=== PATIENT | male | born 1985 | race Caucasian/White ===

== ENCOUNTER 2016-10-27 13:26 | Emergency (ER) | payer BC ==
[2016-10-27 13:43] VITALS: BP 106/76; PULSE 92; RESP 20; TEMP 99.4
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
== END 2016-10-27 14:59 | disposition home or self-care (01) ==
LOC: EC 13:26
DX: S00.83XA Contusion of other part of head, initial encounter (principal); S00.512A Abrasion of oral cavity, initial encounter; Y04.2XXA Assault by strike against or bumped into by another person, initial encounter; F17.200 Nicotine dependence, unspecified, uncomplicated; Z88.8 Allergy status to other drugs, medicaments and biological substances
CPT/HCPCS: 70486; 99284

== ENCOUNTER 2017-01-08 10:38 | Emergency (ER) | payer BC ==
[2017-01-08 10:46] VITALS: BP 117/75; PULSE 81; RESP 20; TEMP 98
--- NOTE | 2017-01-08 10:55 | ED ---
General Adult HPI - General Chief complaint: Recheck/Abnormal Lab/Rx Stated complaint: vomiting Time Seen by Provider: 01/08/17 10:50 Source: patient, RN notes reviewed Mode of arrival: ambulatory Limitations: no limitations - History of Present Illness Initial comments: 31-year-old male presents emergency Department requesting a work no. Patient states that his family all had stomach bug last week until this week states that he has contracted this and was vomiting all last night and having some diarrhea. He states he has open at home in which she's taken it has not been keeping down fluids. Patient states he missed work and needs a work no. Patient does not want a medical treatment. Denies abdominal pain, fever, chills , headache or dizziness. Patient offers no other complaints. - Related Data Home Medications Medication Instructions Recorded Confirmed No Known Home Medications [No 02/27/16 10/27/16 Known Home Medications] Allergies Allergy/AdvReac Type Severity Reaction Status Date / Time cyclobenzaprine HCl Allergy Unknown Verified 10/27/16 13:43 [From Flexeril] ibuprofen [From Motrin] Allergy Nausea & Verified 10/27/16 13:43 Vomiting Review of Systems ROS Statement: Those systems with pertinent positive or pertinent negative responses have been documented in the HPI. ROS Other: All systems not noted in ROS Statement are negative. Past Medical History Past Medical History: No Reported History Additional Past Medical History / Comment(s): BAD TEETH History of Any Multi-Drug Resistant Organisms: None Reported Past Surgical History: No Surgical Hx Reported Past Psychological History: Anxiety Smoking Status: Current every day smoker Past Alcohol Use History: None Reported Past Drug Use History: None Reported General Exam Limitations: no limitations General appearance: alert, in no apparent distress Respiratory exam: Present: normal lung sounds bilaterally. Absent: respiratory distress, wheezes, rales, rhonchi, stridor Cardiovascular Exam: Present: regular rate, normal rhythm, normal heart sounds. Absent: systolic murmur, diastolic murmur, rubs, gallop, clicks GI/Abdominal exam: Present: soft, normal bowel sounds. Absent: distended, tenderness, guarding, rebound, rigid Course Vital Signs 01/08/17 10:44 Temperature 98 F Pulse Rate 81 Respiratory 20 Rate Blood Pressure 117/75 O2 Sat by Pulse 100 Oximetry Medical Decision Making - Medical Decision Making 31-year-old male presented for nausea vomiting. Patient had multiple contacts and also some symptoms. His symptoms are resolving and requested a work no. Return parameters were discussed. Patient offered medical treatment though he declined. Disposition Clinical Impression: Gastroenteritis Disposition: HOME SELF-CARE Condition: Stable Instructions: Acute Nausea and Vomiting (ED) Additional Instructions: Please return to the Emergency Department if symptoms worsen or any other concerns. Time of Disposition: 10:55
== END 2017-01-08 11:13 | disposition home or self-care (01) ==
LOC: EC 10:38
DX: K52.9 Noninfective gastroenteritis and colitis, unspecified (principal); F17.200 Nicotine dependence, unspecified, uncomplicated; Z88.6 Allergy status to analgesic agent; Z88.8 Allergy status to other drugs, medicaments and biological substances
CPT/HCPCS: 99283

== ENCOUNTER 2017-04-04 17:16 | Emergency (ER) | payer BC ==
[2017-04-04 17:43] VITALS: BP 116/74; PULSE 100; RESP 18; TEMP 99.2
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
== END 2017-04-04 18:41 | disposition home or self-care (01) ==
LOC: EC 17:16
DX: R11.2 Nausea with vomiting, unspecified (principal); F17.200 Nicotine dependence, unspecified, uncomplicated; Z88.6 Allergy status to analgesic agent; Z88.8 Allergy status to other drugs, medicaments and biological substances
CPT/HCPCS: 99284

== ENCOUNTER 2017-05-06 17:46 | Emergency (ER) | payer BC ==
[2017-05-06 18:05] VITALS: BP 112/76; PULSE 65; RESP 18; TEMP 98.4
[2017-05-06] MEDS ORDERED: DIAZEPAM 5 MG/ML 2 ML SYRINGE IM STA (18:16)
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
== END 2017-05-06 18:30 | disposition home or self-care (01) ==
LOC: EC 17:46
DX: S76.112D Strain of left quadriceps muscle, fascia and tendon, subsequent encounter (principal); F17.200 Nicotine dependence, unspecified, uncomplicated; Z88.1 Allergy status to other antibiotic agents; Z88.6 Allergy status to analgesic agent; Z88.8 Allergy status to other drugs, medicaments and biological substances; X58.XXXD Exposure to other specified factors, subsequent encounter
CPT/HCPCS: 99283; 96372; J3360

== ENCOUNTER 2017-05-09 20:03 | Emergency (ER) | payer BC ==
[2017-05-09 20:28] VITALS: BP 112/79; PULSE 106; RESP 18; TEMP 97.7
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
== END 2017-05-09 21:17 | disposition home or self-care (01) ==
LOC: EC 20:03
DX: S76.112A Strain of left quadriceps muscle, fascia and tendon, initial encounter (principal); F17.200 Nicotine dependence, unspecified, uncomplicated; Z88.1 Allergy status to other antibiotic agents; Z88.8 Allergy status to other drugs, medicaments and biological substances; Z88.6 Allergy status to analgesic agent; X58.XXXA Exposure to other specified factors, initial encounter
CPT/HCPCS: 99283

== ENCOUNTER 2017-10-07 19:56 | Emergency (ER) | payer BC ==
[2017-10-07 20:38] VITALS: BP 132/84; PULSE 98; RESP 18; TEMP 97.9
--- NOTE | 2017-10-07 21:14 | ED ---
Lower Extremity Injury HPI - General Chief Complaint: Extremity Injury, Lower Stated Complaint: leg/knee pain Time Seen by Provider: 10/07/17 20:53 Source: patient, RN notes reviewed, old records reviewed Mode of arrival: ambulatory Limitations: no limitations - History of Present Illness Initial Comments: This is a 32-year-old male presents for increase right leg pain. Patient states that he had the pain yesterday and then he went to work today in the afternoon it was become increasingly worse. Patient stated above the knee, denies That was in the joint. Patient states that he had to leave work. Patient's reports is here for a work note. He wants. He denies any trauma to the leg, denies numbness or tingling. - Related Data Home Medications Medication Instructions Recorded Confirmed No Known Home Medications [No 08/26/17 08/26/17 Known Home Medications] Allergies Allergy/AdvReac Type Severity Reaction Status Date / Time clindamycin AdvReac Nausea & Verified 08/26/17 07:19 Vomiting cyclobenzaprine HCl AdvReac SEZIZURE Verified 08/26/17 07:19 [From Flexeril] ibuprofen [From Motrin] AdvReac Nausea & Verified 08/26/17 07:19 Vomiting Review of Systems ROS Statement: Those systems with pertinent positive or pertinent negative responses have been documented in the HPI. ROS Other: All systems not noted in ROS Statement are negative. Past Medical History Past Medical History: No Reported History Additional Past Medical History / Comment(s): BAD TEETH, LEFT LEG PROBLEMS History of Any Multi-Drug Resistant Organisms: None Reported Past Surgical History: No Surgical Hx Reported Additional Past Surgical History / Comment(s): seizures Past Psychological History: Anxiety Smoking Status: Current every day smoker Past Alcohol Use History: Occasional Past Drug Use History: Marijuana General Exam - General Exam Comments Initial Comments: This is a 32 year old male, no distress. Limitations: no limitations General appearance: alert, in no apparent distress Head exam: Present: atraumatic, normocephalic, normal inspection Eye exam: Present: normal appearance, PERRL, EOMI. Absent: scleral icterus, conjunctival injection, periorbital swelling ENT exam: Present: normal exam, mucous membranes moist Neck exam: Present: normal inspection. Absent: tenderness, meningismus, lymphadenopathy Respiratory exam: Present: normal lung sounds bilaterally. Absent: respiratory distress, wheezes, rales, rhonchi, stridor Cardiovascular Exam: Present: regular rate, normal rhythm, normal heart sounds. Absent: systolic murmur, diastolic murmur, rubs, gallop, clicks GI/Abdominal exam: Present: soft, normal bowel sounds. Absent: distended, tenderness, guarding, rebound, rigid Right Upper Leg exam: Present: normal inspection, full ROM Knee exam: Present: normal inspection, full ROM Lower Leg exam: Present: normal inspection, full ROM Ankle exam: Present: normal inspection, full ROM Neurovascular tendon exam: Present: no vascular compromise Gait: observed and normal Back exam: Present: normal inspection Neurological exam: Present: alert, oriented X3, CN II-XII intact Psychiatric exam: Present: normal affect, normal mood Skin exam: Present: warm, dry, intact, normal color. Absent: rash Course Vital Signs 10/07/17 20:34 Temperature 97.9 F Pulse Rate 98 Respiratory 18 Rate Blood Pressure 132/84 O2 Sat by Pulse 98 Oximetry Medical Decision Making - Medical Decision Making This is a 32-year-old male presents for increase right leg pain. Patient states that he had the pain yesterday and then he went to work today in the afternoon it was become increasingly worse. Patient stated above the knee, denies That was in the joint. Patient has full range of motion of the leg, Full strength and full vascularity and neurologically intact. Patient will follow up with PCP and return parameters discussed. Discussed no trauma, therefore other testing warranted. Given a note for work today. Disposition Clinical Impression: Right leg pain Disposition: HOME SELF-CARE Condition: Good Instructions: Leg Pain (ED) Additional Instructions: Motrin Tylenol for pain rest ice and elevated. Return to the emergency department if any alarming signs or symptoms occur. Referrals: Omega Puentes MD [Primary Care Provider] - 1-2 days Jose Gonzales DO [Doctor of Osteopathic Medicine] - 1-2 days Time of Disposition: 21:13
== END 2017-10-07 21:24 | disposition home or self-care (01) ==
LOC: EC 19:56
DX: M79.604 Pain in right leg (principal); F17.200 Nicotine dependence, unspecified, uncomplicated; Z88.1 Allergy status to other antibiotic agents; Z88.8 Allergy status to other drugs, medicaments and biological substances; Z88.6 Allergy status to analgesic agent
CPT/HCPCS: 99283

== ENCOUNTER 2018-02-19 18:25 | Emergency (ER) | payer BC ==
[2018-02-19 18:34] VITALS: BP 113/73; PULSE 95; RESP 16; TEMP 99
--- NOTE | 2018-02-19 18:56 | ED ---
Nausea/Vomiting/Diarrhea HPI - General Chief complaint: Nausea/Vomiting/Diarrhea Stated complaint: Stomach pain Time Seen by Provider: 02/19/18 18:39 Source: patient Mode of arrival: ambulatory Limitations: no limitations - History of Present Illness Initial comments: 32-year-old male patient presents to the emergency department today requesting a work note. 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 Patient states that he left work early due to not feeling well. States that he is feeling better now however he doesn't work note to return to work tomorrow. Patient denies any current nausea , denies vomiting, constipation, diarrhea, fever, or chills. Denies any abdominal pain. Patient denies any recent rash, shortness breath, chest pain, back pain, numbness, tingling, dizziness, weakness, hematuria, dysuria, urinary urgency, urinary frequency, headache, visual changes, or any other complaints. - Related Data Home Medications Medication Instructions Recorded Confirmed No Known Home Medications [No 08/26/17 08/26/17 Known Home Medications] Allergies Allergy/AdvReac Type Severity Reaction Status Date / Time clindamycin AdvReac Nausea & Verified 02/19/18 18:34 Vomiting cyclobenzaprine HCl AdvReac SEZIZURE Verified 02/19/18 18:34 [From Flexeril] ibuprofen [From Motrin] AdvReac Nausea & Verified 02/19/18 18:34 Vomiting Review of Systems ROS Statement: Those systems with pertinent positive or pertinent negative responses have been documented in the HPI. ROS Other: All systems not noted in ROS Statement are negative. Past Medical History Past Medical History: No Reported History Additional Past Medical History / Comment(s): BAD TEETH, LEFT LEG PROBLEMS History of Any Multi-Drug Resistant Organisms: None Reported Past Surgical History: No Surgical Hx Reported Additional Past Surgical History / Comment(s): seizures Past Psychological History: Anxiety Smoking Status: Current every day smoker Past Alcohol Use History: Occasional Past Drug Use History: Marijuana General Exam Limitations: no limitations General appearance: alert, in no apparent distress Eye exam: Present: normal appearance, PERRL, EOMI. Absent: scleral icterus, conjunctival injection, periorbital swelling ENT exam: Present: normal exam, mucous membranes moist Neck exam: Present: normal inspection. Absent: tenderness, meningismus, lymphadenopathy Respiratory exam: Present: normal lung sounds bilaterally. Absent: respiratory distress, wheezes, rales, rhonchi, stridor Cardiovascular Exam: Present: regular rate, normal rhythm, normal heart sounds. Absent: systolic murmur, diastolic murmur, rubs, gallop, clicks GI/Abdominal exam: Present: soft, normal bowel sounds. Absent: distended, tenderness, guarding, rebound, rigid Neurological exam: Present: alert, oriented X3, CN II-XII intact Psychiatric exam: Present: normal affect, normal mood Skin exam: Present: warm, dry, intact, normal color. Absent: rash Course Vital Signs 02/19/18 18:31 Temperature 99 F Pulse Rate 95 Respiratory 16 Rate Blood Pressure 113/73 O2 Sat by Pulse 95 Oximetry Medical Decision Making - Medical Decision Making 32-year-old male patient presented to the emergency department today requesting work note after he left work for feeling nauseated. Physical examination is unremarkable. Abdomen is soft and nontender. Patient denies any current symptoms. I did offer to perform blood work and provide medications for his symptoms, he refused stating that he only wanted a work note and to be discharged. Did discuss follow-up with his primary care physician. Return parameters discussed in detail. He verbalizes understanding and agreement with this plan. Disposition Clinical Impression: Nausea Disposition: HOME SELF-CARE Condition: Good Instructions: Acute Nausea and Vomiting (ED) Additional Instructions: Increase fluids. Follow-up through primary care physician for recheck in 1-2 days. Return here immediately for any new, worsening, or concerning symptoms. Is patient prescribed a controlled substance at d/c from ED?: No Referrals: Omega Puentes MD [Primary Care Provider] - 1-2 days Time of Disposition: 18:56
== END 2018-02-19 19:30 | disposition home or self-care (01) ==
LOC: EC 18:25
DX: R11.0 Nausea (principal); R20.8 Other disturbances of skin sensation; F17.200 Nicotine dependence, unspecified, uncomplicated; Z88.1 Allergy status to other antibiotic agents; Z88.6 Allergy status to analgesic agent; Z88.8 Allergy status to other drugs, medicaments and biological substances
CPT/HCPCS: 99283

== ENCOUNTER 2020-12-25 07:55 | Emergency (ER) | payer BC, OTHER ==
[2020-12-25 08:01] VITALS: RESP 18; TEMP 97.4
[2020-12-25] MEDS ORDERED: ACET/COD 300 MG/30 MG STARTER PACK 6 TAB BTL PO STA (08:13)
[2020-12-25] MEDS ORDERED: ONDANSETRON ODT 4 MG TAB PO STA (08:13)
[2020-12-25] MEDS ORDERED: AMOXIC-POT CLAV 875MG STARTER PACK 2 TAB BTL PO STA (08:13)
--- NOTE | 2020-12-25 08:14 | ED ---
ENT HPI - General Source: patient Mode of arrival: ambulatory Limitations: no limitations <Elise Rhoades - Last Filed: 12/25/20 08:15> <Adina Reich - Last Filed: 01/02/21 03:01> - General Chief complaint: Dental/Oral Stated complaint: dental pain Time Seen by Provider: 12/25/20 08:04 - History of Present Illness Initial comments: 35-year-old male presenting to the ER today for chief complaint of left-sided dental pain. Patient states he is a struggle with on-and-off dental pain for quite some time. He states the past 2 days as worse in the left lower aspect of his jaw. Patient denies any facial swelling stumbled the tongue swelling of the neck he denies any fevers chills general malaise. Patient states that he was gargling salt water rinses yesterday and mmouth wash in order to try to help. Patient states this morning he had an episode of vomiting and was not sure if it ws related to the dental infection, denies abdominal pain,, diarrhea, chest pain, dyspnea, cough. Patient states he struggled wtih anxiety especially when in the hospital, HR 134 on arrival in triage, but once resting in room and upon history taking his HR 94bpm. (Elise Rhoades) - Related Data Previous Rx's Medication Instructions Recorded Amoxicillin/Potassium Clav 1 tab PO Q12HR 7 Days #14 tab 12/25/20 [Augmentin 875-125 Tablet] Allergies Allergy/AdvReac Type Severity Reaction Status Date / Time clindamycin AdvReac Nausea & Verified 12/25/20 07:56 Vomiting cyclobenzaprine HCl AdvReac SEZIZURE Verified 12/25/20 07:56 [From Flexeril] ibuprofen [From Motrin] AdvReac Nausea & Verified 12/25/20 07:56 Vomiting Review of Systems ROS Other: All systems not noted in ROS Statement are negative. <Elise Rhoades - Last Filed: 12/25/20 08:15> ROS Other: All systems not noted in ROS Statement are negative. <Adina Reich - Last Filed: 01/02/21 03:01> ROS Statement: Those systems with pertinent positive or pertinent negative responses have been documented in the HPI. Past Medical History Past Medical History: No Reported History, GERD/Reflux, Hypertension, Seizure Disorder Additional Past Medical History / Comment(s): BAD TEETH, LEFT LEG PROBLEMS History of Any Multi-Drug Resistant Organisms: None Reported Past Surgical History: No Surgical Hx Reported Additional Past Surgical History / Comment(s): seizures Past Psychological History: Anxiety, Depression Smoking Status: Current every day smoker Past Alcohol Use History: None Reported Past Drug Use History: Marijuana <Elise Rhoades - Last Filed: 12/25/20 08:15> General Exam Limitations: no limitations <Elise Rhoades - Last Filed: 12/25/20 08:15> - General Exam Comments Initial Comments: General: The patient is awake and alert, in no distress, and does not appear acutely ill. Eye: Pupils are equal, round and reactive to light, extra-ocular movements are intact. No nystagmus. There is normal conjunctiva bilaterally. No signs of icterus. Ears, nose, mouth and throat: There are moist mucous membranes and no oral lesions. Numerous caries and broken teeth there is no obvious abscess adjacent to the broken teeth on gingiva but pain to percussion. no swelling below the tongue or of face/neck. no tripoding drooling, and pt is tolerating oral secretions. Neck: The neck is supple, there is no tenderness or JVD. Cardiovascular: There is a regular rate and rhythm. No murmur, rub or gallop is appreciated. Respiratory: Lungs are clear to auscultation, respirations are non-labored, breath sounds are equal. No wheezes, stridor, rales, or rhonchi. Gastrointestinal: Soft, non-distended, non-tender abdomen without masses or organomegaly noted. There is no rebound or guarding present. Musculoskeletal: Normal ROM, no tenderness. Strength 5/5. Sensation intact. Pulses equal bilaterally 2+. Neurological: A&O x 3. CN II-XII intact grossly, There are no obvious motor or sensory deficits. Coordination appears grossly intact. Speech is normal. Skin: Skin is warm and dry and no rashes or lesions are noted. Psychiatric: Cooperative, appropriate mood & affect, normal judgment. (Elise Rhoades) Course Vital Signs 12/25/20 12/25/20 12/25/20 07:56 08:14 08:37 Temperature 97.4 F L Pulse Rate 134 H 94 100 Respiratory 18 18 Rate Blood Pressure 95/63 98/67 O2 Sat by Pulse 99 96 97 Oximetry Medical Decision Making <Elise Rhoades - Last Filed: 12/25/20 08:15> <Adina Reich - Last Filed: 01/02/21 03:01> - Medical Decision Making Pt repeat HR WNL. Afebrile. he appears well nontoxic. no signs of ludwigs angina. there is no drainage abscess at this time. poor denition overall. pt will be treated with oral antibiotics and is to f/u with dentist in next 2-3 days. return for worsening symptoms pt agreeable to care plan and discharge, (Elise Rhoades) I was available for consultation in the emergency department. The history and physical exam were done by the midlevel provider. I was consulted for this patients care. I reviewed the case with the midlevel provider and based on their presentation of the patient, I agree with the assessment, medical decision making and plan of care as documented. Chart was dictated using [employer] dictation software. Attempts were made to correct any dictation errors however some typographical errors may persist. Patient was seen during a national state of emergency due to the Covid-19 pandemic. (Adina Reich) Disposition Is patient prescribed a controlled substance at d/c from ED?: No Time of Disposition: 08:14 <Elise Rhoades - Last Filed: 12/25/20 08:15> <Adina Reich - Last Filed: 01/02/21 03:01> Clinical Impression: Pain, dental Disposition: HOME SELF-CARE Condition: Good Instructions (If sedation given, give patient instructions): Dental Abscess (ED), Toothache (ED) Additional Instructions: Please use medication as discussed. Please follow-up with dentist in the next 2 days, return for fevers, facial swelling, lightheadedness, swelling of neck or below tongue. Please return to emergency room if the symptoms increase or worsen or for any other concerns. Prescriptions: Amoxicillin/Potassium Clav [Augmentin 875-125 Tablet] 1 tab PO Q12HR 7 Days #14 tab Referrals: Geronimo Carl MD [Primary Care Provider] - 1-2 days
[2020-12-25 08:39] VITALS: BP 98/67; PULSE 100
== END 2020-12-25 08:38 | disposition home or self-care (01) ==
LOC: EC 07:55
DX: K08.89 Other specified disorders of teeth and supporting structures (principal); K21.9 Gastro-esophageal reflux disease without esophagitis; I10 Essential (primary) hypertension; F41.9 Anxiety disorder, unspecified; F12.90 Cannabis use, unspecified, uncomplicated; F17.200 Nicotine dependence, unspecified, uncomplicated; F32.9 Major depressive disorder, single episode, unspecified
CPT/HCPCS: 99283

== ENCOUNTER 2021-03-19 20:20 | Emergency (ER) | payer OTHER ==
[2021-03-19] MEDS ORDERED: SODIUM CHLORIDE 0.9% 1,000 ML IV ONE (20:55)
[2021-03-19 21:56] LABS: Basophils # (A) 0.1 k/uL (0-0.2); Basophils % (A) 0 %; Eosinophils # (A) 0.3 k/uL (0-0.7); Eosinophils % (A) 1 %; HCT 44.4 % (39.0-53.0); HGB 15.2 gm/dL (13.0-17.5); Lymphocytes % (A) 5 %; MCH 31.6 pg (25.0-35.0); MCHC 34.2 g/dL (31.0-37.0); MCV 92.4 fL (80.0-100.0); Mean Platelet Volume 6.2; Monocytes # (A) 0.5 k/uL (0-1.0); Monocytes % (A) 2 %; Neutrophils # (A) 21.1 k/uL (1.3-7.7); Neutrophils % (A) 92 %; Platelet Count 371 k/uL (150-450); RDW 12.7 % (11.5-15.5)
[2021-03-19 22:07] LABS: INR 1.1 (<1.2); Partial Thromboplastin Time 24.1 sec (22.0-30.0); Prothrombin Time 11.5 sec (9.0-12.0)
--- NOTE | 2021-03-19 22:07 | XR ---
EXAMINATION TYPE: XR chest 2V DATE OF EXAM: 03/19/2021 COMPARISON: 12/11/2015 HISTORY: Chest pain TECHNIQUE: 2 views FINDINGS: There is some diffuse interstitial infiltrate in the left lung. This is mainly in the mid l edyta field. There is slight increased interstitial density also in the right lung. Heart and mediastin um are normal. There are no hilar masses. Costophrenic angles are clear. Bony thorax is intact. IMPRESSION: There is some interstitial pneumonia which is new compared to old exam. Normal heart. Pne umonia mainly on the left side.
--- NOTE | 2021-03-19 22:07 | ED ---
Chest Pain HPI - General Chief Complaint: Chest Pain Stated Complaint: Chest Pain Time Seen by Provider: 03/19/21 20:33 Source: patient, EMS, RN notes reviewed Mode of arrival: EMS Limitations: no limitations - History of Present Illness Initial Comments: 35-year-old male presents emergency from chief complaint of left-sided abdominal chest discomfort. Patient states that he home after he states he was boating all weekend he states he started feeling shaky, felt like he was very nauseated and vomiting. Patient states that he attempted getting some cousins have a few bouts of emesis denies any went to nausea currently states that he had some left-sided rib pain which is still there but better. Patient denies any shortness breath he states it hurts to twist amendment to get deep breath no prior cardiac disease. Patient denies any alcohol or drug use. He states she's been sore for over 3 years. - Related Data Previous Rx's Medication Instructions Recorded Amoxicillin/Potassium Clav 1 tab PO Q12HR 7 Days #14 tab 12/25/20 [Augmentin 875-125 Tablet] Azithromycin [Zithromax Z-pack (6 0 mg PO DIRECTED #1 pack 03/19/21 tabs)] Allergies Allergy/AdvReac Type Severity Reaction Status Date / Time clindamycin AdvReac Nausea & Verified 12/25/20 07:56 Vomiting cyclobenzaprine HCl AdvReac SEZIZURE Verified 12/25/20 07:56 [From Flexeril] ibuprofen [From Motrin] AdvReac Nausea & Verified 12/25/20 07:56 Vomiting Review of Systems ROS Statement: Those systems with pertinent positive or pertinent negative responses have been documented in the HPI. ROS Other: All systems not noted in ROS Statement are negative. Past Medical History Past Medical History: No Reported History, GERD/Reflux, Hypertension, Seizure Disorder Additional Past Medical History / Comment(s): BAD TEETH, LEFT LEG PROBLEMS History of Any Multi-Drug Resistant Organisms: None Reported Past Surgical History: No Surgical Hx Reported Additional Past Surgical History / Comment(s): seizures Past Psychological History: Anxiety, Depression Smoking Status: Current every day smoker Past Alcohol Use History: None Reported Past Drug Use History: Marijuana General Exam Limitations: no limitations General appearance: alert, in no apparent distress Head exam: Present: atraumatic, normocephalic, normal inspection Eye exam: Present: normal appearance, PERRL, EOMI. Absent: scleral icterus, conjunctival injection, periorbital swelling Neck exam: Present: normal inspection, full ROM. Absent: tenderness, meningismus, lymphadenopathy Respiratory exam: Present: normal lung sounds bilaterally. Absent: respiratory distress, wheezes, rales, rhonchi, stridor, chest wall tenderness Cardiovascular Exam: Present: regular rate, normal rhythm, normal heart sounds. Absent: systolic murmur, diastolic murmur, rubs, gallop, clicks GI/Abdominal exam: Present: soft, normal bowel sounds. Absent: distended, tenderness, guarding, rebound, rigid Course Vital Signs 03/19/21 03/19/21 03/19/21 20:37 21:53 22:26 Temperature 98.7 F 100 F H Pulse Rate 71 71 84 Respiratory 20 20 22 Rate Blood Pressure 106/88 106/74 96/70 O2 Sat by Pulse 100 95 95 Oximetry Chest Pain MDM - MDM 35-year-old presented for similar rib discomfort. Patient workup reveals evidence of pneumonia. Patient's did have low-grade temp. White count shows evidence of 22,000 white count. Patient is currently on Augmentin. Patient was given Rocephin is instructed for further evaluation treatment but states that he wants to leave states he does not want to stay in the hospital. Disposition Clinical Impression: Pneumonia Disposition: HOME SELF-CARE Condition: Stable Instructions (If sedation given, give patient instructions): Pneumonia (ED) Additional Instructions: Please return to the Emergency Department if symptoms worsen or any other concerns. Prescriptions: Azithromycin [Zithromax Z-pack (6 tabs)] 0 mg PO DIRECTED #1 pack Is patient prescribed a controlled substance at d/c from ED?: No Referrals: Geronimo Carl MD [Primary Care Provider] - 1-2 days Time of Disposition: 23:20
[2021-03-19 22:17] LABS: ALT 18 U/L (4-49); AST 65 U/L (17-59); African American GFR (CKD) >90 (>60 ml/min/1.73 sqM); Albumin 3.9 g/dL (3.5-5.0); Alkaline Phosphatase 99 U/L (38-126); Anion Gap 9 mmol/L; Blood Urea Nitrogen 12 mg/dL (9-20); Calcium 9.3 mg/dL (8.4-10.2); Carbon Dioxide 23 mmol/L (22-30); Chloride 108 mmol/L (98-107); Glucose 97 mg/dL (74-99); Lipase 312 U/L (23-300); Magnesium 1.5 mg/dL (1.6-2.3); Non-African American GFR(CKD) >90 (>60 ml/min/1.73 sqM); Potassium 3.7 mmol/L (3.5-5.1); Sodium 140 mmol/L (137-145); Total Bilirubin 0.4 mg/dL (0.2-1.3); Total Protein 6.5 g/dL (6.3-8.2)
[2021-03-19] MEDS ORDERED: cefTRIAXone IN SWFI 1,000 MG/10 ML SYRINGE IVP STA (23:18)
[2021-03-19 23:43] VITALS: BP 98/67; PULSE 98; RESP 20; TEMP 99.1
== END 2021-03-19 23:43 | disposition home or self-care (01) ==
LOC: EC 20:20
DX: J18.9 Pneumonia, unspecified organism (principal); K21.9 Gastro-esophageal reflux disease without esophagitis; I10 Essential (primary) hypertension; F32.9 Major depressive disorder, single episode, unspecified; F41.9 Anxiety disorder, unspecified; F17.200 Nicotine dependence, unspecified, uncomplicated; F12.90 Cannabis use, unspecified, uncomplicated
CPT/HCPCS: 36415; 71046; 80053; 83690; 83735; 84484; 85025; 85610; 85730; 87635; 93005; 96374; 99285